=== PATIENT | female | born 1955 | race Hispanic/Latino ===

== ENCOUNTER 2017-07-12 02:29 | Inpatient (IN) | payer SELFPAY ==
[2017-07-12] MEDS ORDERED: Magnesium Sulfate 2 GM/NS 0.9% 50 ML BAG ONE (03:22)
[2017-07-12 04:39] LABS: CKMB 0.7 ng/mL (0-6.6); Troponin I Less than 0.010 ng/mL (< 0.028)
[2017-07-12 07:33] LABS: Troponin I Less than 0.010 ng/mL (< 0.028)
[2017-07-12 08:08] LABS: Lactic Acid 4.3 mmol/L (0.5-2.2)
[2017-07-12] MEDS ORDERED: Senokot 8.6 MG TAB PO PRN ×3 (09:08→22:08)
[2017-07-12] MEDS ORDERED: Acetaminophen 325 MG TAB PO PRN ×2 (09:08→22:08)
[2017-07-12] MEDS ORDERED: Mag-Al 1200 mg/1200 mg/30 ML UDCUP PO PRN (09:08)
[2017-07-12] MEDS ORDERED: Bisacodyl 5 MG TAB PO PRN ×3 (09:08→22:08)
[2017-07-12] MEDS ORDERED: Calcium Carbonate 500 MG ChewTAB PO PRN (09:08)
[2017-07-12] MEDS ORDERED: cloNIDine 0.1 MG TAB PO PRN ×2 (09:09→22:08)
[2017-07-12] MEDS ORDERED: hydrALAZINE 20 MG/ML VIAL SLOW IVP PRN ×2 (09:09→22:08)
[2017-07-12] MEDS ORDERED: Sodium Chloride 0.9% 1,000 ML IV SCH (09:30)
--- NOTE | 2017-07-12 10:15 | HP ---
DATE OF ADMISSION: 07/12/2017 PRIMARY CARE PHYSICIAN: Dr. Mingo Cronin. CHIEF COMPLAINT: Chest pain and shortness of breath. HISTORY OF PRESENT ILLNESS: Ms. Hernandez is a pleasant 62-year-old female with past medic al history of asthma, rheumatoid arthritis, and hypertension, who is on immunosuppression with methot rexate and prednisone, presented to the [facility] with the above-mentioned complaint. History is mainly obtained by the record review as the patient currently has BiPAP on and is not able to provide much of the history. is at bedside, who supplemented some of it. According to them, she started to have sudden onset of chest pain followed shortly by worsening short ness of breath and excessive wheezing. She has been having some URI-like symptoms for the last 24 ho urs. Upon presentation to [facility], she was hypoxic with O2 sat of 89% on room air. Her symptoms did not improve with nebulizers at home as well as prednisone at increased dose. She wa s given Solu-Medrol and multiple continuous nebs in [facility] and was stabilized. Her EKG showed some ST depression in lead 1 and aVL and V5-V6 as well as some inverted T leads. Chest x- ray did not show any effusion, edema, or infiltrate. Her D-dimer was elevated, but it was found to b e chronically elevated since last year. Influenza swab done at [facility] wa s positive for influenza A. Nevertheless, she was also given Tamiflu and was transferred to our faci lity at emergency room. At [facility], she was found to be having severe wheezing with severe shortness of b reath with respiratory distress, labored breathing, dyspneic, tripoding, and grunting. She was found to have fever as well. She was started on BiPAP and was given some more nebulizers and has been fee ling better now. She is now being admitted with a presumptive diagnosis of acute respiratory failure and rule out sepsis. Her lactic acid has been elevated at 3.8, which has jumped up to 4.3. PAST MEDICAL HISTORY: 1. Hypertension. 2. Rheumatoid arthritis, on chronic immunosuppressants. 3. Asthma. 4. Morbid obesity. 5. Fibromyalgia. 6. Carpal tunnel syndrome. 7. Peripheral neuropathy. 8. Dyslipidemia. 9. Gastroesophageal reflux disease. 10. Allergic rhinitis. PAST SURGICAL HISTORY: 1. Bilateral carpal tunnel surgery. 2. Bilateral tubal ligation. 3. Cholecystectomy. SOCIAL HISTORY: She has on and off smoke, but has recently quit. She smoked for a total of 5 years. No alcohol or drug abuse. She is and lives with her family. Independent with ADLs and IAD Ls. FAMILY HISTORY: Significant for myocardial infarction in her father and brother. Her mother had a s troke. One of her siblings has diabetes. ALLERGIES: No known medication allergies. MEDICATIONS: Incomplete list, but as listed in the emergency room record, she takes Lynn as needed, Lyrica daily, prednisone 5 mg daily, and methotrexate unknown dose. REVIEW OF SYSTEMS: The following complete review of systems was negative, unless otherwise mentioned in the HPI or below: Constitutional: Weight loss or gain, ability to conduct usual activities. Sk in: Rash, itching. Eyes: Double vision, pain. ENT/Mouth: Nose bleeding, neck stiffness, pain, te nderness. Cardiovascular: Palpitations, dyspnea on exertion, orthopnea. Respiratory: Shortness of breath, wheezing, cough, hemoptysis, fever or night sweats. Gastrointestinal: Poor appetite, abdom inal pain, heartburn, nausea, vomiting, constipation, or diarrhea. Genitourinary: Urgency, frequenc y, dysuria, nocturia. Musculoskeletal: Pain, swelling. Neurologic/Psychiatric: Anxiety, depressio n. Allergy/Immunologic: Skin rash, bleeding tendency. It is negative except for those mentioned in the history and physical. LABORATORY EXAMINATION: CBC shows WBCs at 14.2 with 5% bands and 83% neutrophils, otherwise unremark able. Hemoglobin is 13.7. D-dimer is 1.79. Serum chemistries show blood sugar of 164, bicarbonate 20, otherwise unremarkable. Chest x-ray, by my review, has no evidence to suggest pulmonary infiltra kenton or edema. A 12-lead EKG, by my review, shows inverted T leads in leads V4, V5, V1, and aVL with ST depression i n the same leads. PHYSICAL EXAMINATION: VITAL SIGNS: Most recent vital signs, temperature 98.7, blood pressure 125/75, respirations 20, she is saturating 96% on BiPAP, pulse of 91. GENERAL EXAMINATION: In no acute distress. She is somewhat somnolent, arousable, and able to provid e answers to the questions in general. No acute respiratory distress noticed. Awake, alert, oriente d x3. HEENT EXAMINATION: BiPAP mask is on. Head is normocephalic, atraumatic. Pupils equal and reactive to light and accommodation. Extraocular movements intact. NECK: Supple without any lymphadenopathy, JVD, or bruit. CHEST: Evaluation shows bilateral wheezing without any crackles or rhonchi. HEART: Rate and rhythm is regular without any murmur, rubs, or gallops. ABDOMEN: Morbidly obese. EXTREMITIES: Free of any cyanosis, clubbing, or edema. SKIN: Free of any rashes or bruises. Feels warm and dry to touch. PSYCHIATRIC: Normal affect. NEUROLOGICAL EXAMINATION: Nonfocal. IMPRESSION AND PLAN: 1. Acute respiratory distress. This is likely secondary to acute asthma exacerbation due to influen za A. Sepsis also needs to be ruled out. She will be empirically started on IV antibiotics as well as Tamiflu. We will continue IV steroids and BiPAP as needed and supplemental oxygen. Nebulizers sc heduled and p.r.n. will be ordered along with Dulrea. She will be admitted to intermediate care unit and we will consult Pulmonary Medicine as well. Incentive pulmonary toilet will be initiated. Drop let precautions. 2. Lactic acidosis. Sepsis needs to be ruled out. Blood cultures have been obtained and we will fo llow the results. We will provide her with gentle IV fluid hydration for the sepsis and follow the r esults of the cultures. Empiric antibiotic as above along with the Tamiflu. 3. Chest pain. The patient had a normal stress test late last year with good ejection fraction of 6 9%. Likely, her chest pain is related to asthma exacerbation and bronchospasm. We will add p.r.n. n itroglycerin and low-dose aspirin and continue to trend serial cardiac enzymes. Her troponins have b een negative so far x2. 3. Rheumatoid arthritis. Resume her home medication of methotrexate. She will be on IV steroids, s o we will hold the oral prednisone for now. 4. Asthma. Continue with inhalers and nebulizers as above. 5. Hypertension, currently well controlled. Reconcile her medications and restart as needed. 6. Deep venous thrombosis and gastrointestinal prophylaxis. 7. Add p.r.n. medication orders. 8. Code status: FULL CODE, discussed with the patient. DISPOSITION: Ms. Hernandez is critically ill and will be admitted to IM for acute respiratory dist ress due to asthma exacerbation and influenza A. Total critical care time spent in the care of this patient is 38 minutes. Further management will de pend upon her clinical course.
[2017-07-12 10:43] LABS: Troponin I Less than 0.010 ng/mL (< 0.028)
[2017-07-12] MEDS ORDERED: Levofloxacin 500 mg/D5W 100 ml Premix Bag ONE (11:05)
[2017-07-12] MEDS ORDERED: Water For Inject, Bacteriostat 30 ML ONE (12:38)
[2017-07-12] MEDS: Mometasone/Formoterol 120 PUFF INHALER INH SCH (19:47)
[2017-07-12] MEDS ORDERED: Famotidine 20 MG TAB ONE (21:18)
[2017-07-12] MEDS ORDERED: Diabetic Tussin 200 MG/10 ML UDCUP PO PRN (22:08)
[2017-07-12] MEDS ORDERED: Benzonatate 100 MG CAP PO PRN (22:08)
[2017-07-12] MEDS ORDERED: Famotidine 20 MG TAB PO SCH (22:08)
[2017-07-12] MEDS ORDERED: Loratadine 10 MG TAB PO PRN (22:08)
[2017-07-12] MEDS ORDERED: Nitroglycerin 0.4 MG TAB (25 Tab Bottle) SL PRN (22:08)
[2017-07-12] MEDS ORDERED: Ondansetron HCl/PF 4 MG/2 ML Vial IVP PRN ×2 (22:08)
[2017-07-12] MEDS: Oseltamivir 75 MG CAP PO SCH (22:14)
[2017-07-12] MEDS: Famotidine 20 MG TAB PO SCH (22:15)
[2017-07-12 22:21] VITALS: BMI 41.7
[2017-07-12] MEDS ORDERED: Enoxaparin Sodium 40 MG/0.4 ML SYRINGE SC SCH (22:30)
[2017-07-12] MEDS: Enoxaparin Sodium 40 MG/0.4 ML SYRINGE SC SCH (23:21)
[2017-07-12] MEDS: Sodium Chloride 0.9% 1,000 ML IV SCH (23:47)
[2017-07-13] MEDS: HYDROcodone/Acetaminophen 5/325 mg Tablet PO PRN ×2 (03:37→15:16)
[2017-07-13 04:57] LABS: #Lymphocytes 1.1 thou/uL (1.20-3.40); #Monocytes 0.5 thou/uL (0.11-0.59); %Basophils 0.1 % (0.0-1.0); %Eosinophils 0.1 % (0.0-10.0); %Lymphocytes 6.9 % (21.0-51.0); %Monocytes 3.4 % (0.0-10.0); %Neutrophils 89.5 % (42.0-75.0); Mean Corpuscular HGB CONC 32.2 g/dL (32.0-36.0); Mean Corpuscular Hemoglobin 30.9 pg (27.0-31.0); Mean Corpuscular Volume 95.8 fl (81.0-99.0); Mean Platelet Volume 8.7 fL (7.4-10.4); Platelet Count 228 thou/uL (130-400); RBC Distribution Width 14.5 % (11.5-14.5); Red Blood Cell (RBC) Count 4.54 mill/uL (4.20-5.40); White Blood Cell (WBC) Count 15.6 thou/uL (4.8-10.8)
[2017-07-13] MEDS: Sodium Chloride 0.9% 1,000 ML IV SCH (05:28)
[2017-07-13 05:35] LABS: ALT (SGPT) 32 U/L (8-55); AST (SGOT) 33 U/L (5-34); Albumin 3.7 g/dL (3.4-4.8); Alkaline Phosphatase 111 U/L (40-150); Anion Gap 16 mmol/L (10-20); BUN (Urea Nitrogen) 9 mg/dL (9.8-20.1); Bilirubin, Total 0.3 mg/dL (0.2-1.2); Calc. Creatinine Clearance 136 mL/min (70-130); Calcium 8.7 mg/dL (7.8-10.44); Carbon Dioxide 20 mmol/L (23-31); Chloride 108 mmol/L (98-107); Estimated GFR-MDRD 90; Globulin 3.2 g/dL (2.4-3.5); Glucose 167 mg/dL (80-115); Potassium 4.2 mmol/L (3.5-5.1); Protein, Total 6.9 g/dL (6.0-8.3); Sodium 140 mmol/L (136-145)
[2017-07-13] MEDS: Enoxaparin Sodium 40 MG/0.4 ML SYRINGE SC SCH ×2 (08:05→08:07)
[2017-07-13] MEDS: Famotidine 20 MG TAB PO SCH ×2 (08:06→20:07)
[2017-07-13] MEDS: Oseltamivir 75 MG CAP PO SCH ×2 (08:07→20:07)
[2017-07-13] MEDS: traMADol HCl 50 MG TAB PO PRN ×2 (08:07→18:05)
[2017-07-13] MEDS: Mometasone/Formoterol 120 PUFF INHALER INH SCH ×2 (08:48→18:55)
[2017-07-13] MEDS ORDERED: Sodium Chloride 0.9% 1,000 ML IV SCH (08:59)
--- NOTE | 2017-07-13 11:48 | CON ---
DATE OF CONSULTATION: 07/13/2017 A 62-year-old morbidly obese female who presented with shortness of breath, cough. She has influenza A. She was started on Tamiflu. She also states that she has a history of asthma, a former smoker. Calos ugalde has not sought any recent medical attention because of financial issues. The patient's coughing was grossly purulent. She denies any chills or sweats, though she is complain ing of vague posterior chest pain, but no history of anterior chest pain, nausea, vomiting, diaphores is. She is pretty much deconditioned, she says because of arthritis. PAST MEDICAL HISTORY: Chronic asthma, COPD, tobacco abuse, hypertension, fibromyalgia, rheumatoid ar thritis, carpal tunnel, neuropathy. PAST SURGICAL HISTORY: Otherwise included carpal tunnel surgery, tubal ligation, gallbladder. MEDICATIONS: List of medicines from home includes prednisone, Atarax, Lyrica 150, Protonix 40, metho trexate 3 tablets once a week, Mobic 7.5, hydrocodone, Advair inhaler, Nexium, Flexeril, albuterol in haler. Admission medications; she is on Tamiflu, Levaquin. X-ray was normal. REVIEW OF SYSTEMS: Ten point negative. PHYSICAL EXAMINATION: GENERAL: Morbidly obese female. VITAL SIGNS: Blood pressure is 156/96, sats 93 on 2 liters, respirations 20, temperature 98. CHEST: Chest revealed decreased breath sounds, no wheezing. CARDIAC: Normal S1-S2. No gallops. ABDOMEN: Soft. No masses. Electrolytes are normal. White count 15,000. IMPRESSION: 1. Influenza A. 2. Bronchitis. 3. Chronic obstructive pulmonary disease. 4. Asthma. 5. . 6. Fibromyalgia. PLAN: Continue antibiotics, deescalate since all cultures are back. Continue Tamiflu, PT, nutrition. Please note this is a 50 minute spent for consultation at the bedside, direct patient care.
--- NOTE | 2017-07-13 14:28 | PDOC.PN ---
- Subjective Encounter Start Date: 07/13/17 Encounter Start Time: 14:27 Subjective: feels a bit better.stilll easily winded. -: c/o back pain - Objective MAR Reviewed: Yes Vital Signs & Weight: Vital Signs (12 hours) Temp Pulse Resp BP BP Pulse Ox 07/13/17 14:24 96 24 H 07/13/17 12:00 88 L 07/13/17 11:40 97.8 F 89 17 145/73 H 90 L 07/13/17 08:48 83 24 H 93 L 07/13/17 08:25 92 L 07/13/17 08:21 83 24 H 92 L 07/13/17 08:01 97.8 F 91 22 H 156/69 H 91 L 07/13/17 08:00 97.8 F 83 24 H 91 L 07/13/17 04:00 97.3 F L 95 22 H 171/94 H 92 L Weight Weight 220 lb 14.4 oz I&O: 07/12/17 07/13/17 07/14/17 06:59 06:59 06:59 Intake Total 1060 Output Total 300 Balance 760 Result Diagrams: 07/13/17 04:06 07/13/17 04:06 Additional Labs: Microbiology 07/12/17 00:07 Nasal swab Influenza Types A,B Direct EIA - Final 07/13/17 03:28 Urine voided Urine Culture - Preliminary NO GROWTH AT 24 HOURS Laboratory Tests 07/11/17 07/13/17 00:15 04:06 WBC 14.2 H 15.6 H Phys Exam - Physical Examination Constitutional: NAD not wearing oxygen.put back on by me HEENT: PERRLA, moist MMs, sclera anicteric, oral pharynx no lesions Neck: no nodes, no JVD, supple, full ROM Respiratory: wheezing present rhonchi Cardiovascular: RRR, no significant murmur Gastrointestinal: soft, non-tender, no distention, positive bowel sounds Musculoskeletal: no edema, pulses present Neurological: non-focal, normal sensation, moves all 4 limbs Psychiatric: normal affect, A&O x 3 Skin: no rash Dx/Plan (1) Acute respiratory failure Code(s): J96.00 - ACUTE RESPIRATORY FAILURE, UNSP W HYPOXIA OR HYPERCAPNIA Status: Acute Qualifiers: Respiratory failure complication: hypoxia Qualified Code(s): J96.01 - Acute respiratory failure with hypoxia (2) Acute bronchitis with chronic obstructive pulmonary disease (COPD) Code(s): J44.0 - CHRONIC OBSTRUCTIVE PULMON DISEASE W ACUTE LOWER RESP INFCT; J20.9 - ACUTE BRONCHITIS, UNSPECIFIED Status: Acute (3) Influenza A Code(s): J10.1 - FLU DUE TO OTH IDENT INFLUENZA VIRUS W OTH RESP MANIFEST Status: Acute (4) Chronic pain Code(s): G89.29 - OTHER CHRONIC PAIN Status: Acute (5) Morbid obesity Code(s): E66.01 - MORBID (SEVERE) OBESITY DUE TO EXCESS CALORIES Status: Acute (6) Rheumatoid arthritis Code(s): M06.9 - RHEUMATOID ARTHRITIS, UNSPECIFIED Status: Acute - Plan continue antibiotics, respiratory therapy, incentive spirometry, out of bed/ ambulate, DVT proph w/SCDs Change to PO ABx.cont IV steroids,nebs,dulera etc -: Cont tamiflu. -: likley home in next 24-48 hours. -: PCCM following.Restart Home meds including lasix.DC IVF -: am labs * . Review of Systems - Review of Systems Constitutional: weakness, malaise. negative: fever, chills, sweats, other Respiratory: Cough, SOB with Excertion. negative: Dry, Shortness of Breath, Hemoptysis, Pleuritic Pain, Sputum, Wheezing Cardiovascular: negative: chest pain, palpitations, orthopnea, paroxysmal nocturnal dyspnea, edema, light headedness, other Gastrointestinal: negative: Nausea, Vomiting, Abdominal Pain, Diarrhea, Constipation, Melena, Hematochezia, Other Genitourinary: negative: Dysuria, Frequency, Incontinence, Hematuria, Retention , Other Musculoskeletal: negative: Neck Pain, Shoulder Pain, Arm Pain, Back Pain, Hand Pain, Leg Pain, Foot Pain, Other Neurological: negative: Weakness, Numbness, Incoordination, Change in Speech, Confusion, Seizures, Other - Medications/Allergies Allergies/Adverse Reactions: Allergies Allergy/AdvReac Type Severity Reaction Status Date / Time No Known Drug Allergies Allergy Verified 07/12/17 22:12 Medications: Current Medications Acetaminophen (Tylenol) 650 mg PO Q4H PRN PRN Reason: Headache/Fever or Pain Hydrocodone Bitart/Acetaminophen (Norton 5/325) 1 tab PO Q4H PRN PRN Reason: Moderate Pain (4-6) Last Admin: 07/13/17 03:37 Dose: 1 tab Hydrocodone Bitart/Acetaminophen (Norton 10/325) tab PO Q4HR PRN PRN Reason: Pain Al Hydroxide/Mg Hydroxide (Maalox) 30 ml PO Q6H PRN PRN Reason: Heartburn or Indigestion Albuterol/Ipratropium (Duoneb) 3 ml NEB Q4H PRN PRN Reason: SOB &/or Wheezing Albuterol/Ipratropium (Duoneb) 3 ml NEB [id number] [facility] Last Admin: 07/13/17 14:24 Dose: 3 ml Benzonatate (Tessalon) 100 mg PO Q4H PRN PRN Reason: Cough Bisacodyl (Dulcolax) 10 mg PO DAILYPRN PRN PRN Reason: Constipation Calcium Carbonate (Tums) 1,000 mg PO Q4H PRN PRN Reason: Heartburn or Indigestion Clonidine (Catapres) 0.1 mg PO Q4H PRN PRN Reason: Systolic BP > 160 Cyclobenzaprine HCl (Flexeril) 10 mg PO BID [facility] Enoxaparin Sodium (Lovenox) 40 mg SC 0900 [facility] Last Admin: 07/13/17 08:05 Dose: 40 mg Enoxaparin Sodium (Lovenox) 40 mg SC 0900 [facility] Last Admin: 07/13/17 08:07 Dose: 40 mg Famotidine (Pepcid) 20 mg PO BID [facility] Last Admin: 07/13/17 08:06 Dose: 20 mg Furosemide (Lasix) mg PO DAILY [facility] Guaifenesin (Robitussin Sf) 200 mg PO Q4H PRN PRN Reason: Cough Hydralazine HCl (Apresoline) 10 mg SLOW IVP Q4H PRN PRN Reason: Systolic BP > 170 Sodium Chloride (Normal Saline 0.9%) 1,000 mls @ 75 mls/hr IV .[id number] [facility] Last Admin: 07/13/17 10:21 Dose: 1,000 mls Levofloxacin (Levaquin) 500 mg PO 0600 [facility] Loratadine (Claritin) 10 mg PO DAILYPRN PRN PRN Reason: Sinus Symptoms Methotrexate Sodium (Methotrexate Sodium) mg PO Q7D [facility] Methylprednisolone Sodium Succinate (Solu-Medrol) 40 mg IVP Q6HR [facility] Last Admin: 07/13/17 12:27 Dose: 40 mg Mometasone Furoate/Formoterol Fumar (Dulera 200 Mcg/5 Mcg Inhaler) 2 puff INH BID-RT [facility] Last Admin: 07/13/17 08:48 Dose: 2 puff Nitroglycerin (Nitrostat) 0.4 mg SL Q5MIN PRN PRN Reason: Chest Pain Non-Formulary Medication (Esomeprazole Magnesium [Nexium]) 40 mg PO DAILY [facility] Non-Formulary Medication (Folic Acid [Folic Acid]) 1 mg PO DAILY [facility] Non-Formulary Medication (Pregabalin [Lyrica]) 150 mg PO BID [facility] Ondansetron HCl (Zofran) 4 mg IVP Q6H PRN PRN Reason: Nausea/Vomiting Last Admin: 07/13/17 08:10 Dose: 4 mg Oseltamivir Phosphate (Tamiflu) 75 mg PO BID [facility] Stop: 07/16/17 21:01 Last Admin: 07/13/17 08:07 Dose: 75 mg Senna (Senokot) 2 tab PO HSPRN PRN PRN Reason: Constipation Tramadol HCl (Ultram) 50 mg PO Q4H PRN PRN Reason: Moderate Pain (4-6) Last Admin: 07/13/17 08:07 Dose: 50 mg
[2017-07-13] MEDS: Pregabalin 75 MG CAP PO SCH (20:06)
[2017-07-13] MEDS: HYDROcodone/Acetaminophen 10/325 mg Tablet PO PRN (20:07)
[2017-07-13] MEDS: Cyclobenzaprine 10 MG TAB PO SCH (20:07)
[2017-07-13] MEDS ORDERED: Albuterol Sulfate 1.25 MG/3 ML NEB ONE (23:51)
[2017-07-14 05:38] LABS: Anion Gap 17 mmol/L (10-20); BUN (Urea Nitrogen) 13 mg/dL (9.8-20.1); Calc. Creatinine Clearance 145 mL/min (70-130); Calcium 8.4 mg/dL (7.8-10.44); Carbon Dioxide 18 mmol/L (23-31); Chloride 107 mmol/L (98-107); Estimated GFR-MDRD Greater than 90; Glucose 179 mg/dL (80-115); Potassium 4.6 mmol/L (3.5-5.1); Sodium 137 mmol/L (136-145)
[2017-07-14] MEDS: HYDROcodone/Acetaminophen 10/325 mg Tablet PO PRN ×3 (05:50→21:21)
[2017-07-14] MEDS: Mometasone/Formoterol 120 PUFF INHALER INH SCH ×2 (07:35→20:50)
[2017-07-14] MEDS: Folic Acid 1 MG TAB PO SCH (09:14)
[2017-07-14] MEDS: Cyclobenzaprine 10 MG TAB PO SCH ×2 (09:14→21:20)
[2017-07-14] MEDS: Pregabalin 75 MG CAP PO SCH ×2 (09:14→21:20)
[2017-07-14] MEDS: Famotidine 20 MG TAB PO SCH ×2 (09:14→21:20)
[2017-07-14] MEDS: Enoxaparin Sodium 40 MG/0.4 ML SYRINGE SC SCH ×2 (09:14→09:44)
[2017-07-14] MEDS: Oseltamivir 75 MG CAP PO SCH ×2 (09:15→21:20)
[2017-07-14] MEDS: Furosemide 20 MG TAB PO SCH (09:15)
--- NOTE | 2017-07-14 10:26 | PRG ---
DATE OF SERVICE: 07/14/2017 This morning she is better, less short of breath, less fever, less headache. PHYSICAL EXAMINATION: VITAL SIGNS: Temperature 96. Sats are 98 on 2 liters, respirations 16, pulse 75, blood pressure 156 /74. CHEST: Chest reveals decreased breath sounds with minimal wheezing. CARDIAC: Normal S1-S2. No gallops. ABDOMEN: Soft. No masses. IMPRESSION: 1. Influenza A. 2. Bronchitis baseline. 3. Rheumatoid arthritis. PLAN: She can probably be switched over to oral medication. She can be transferred out of the [facility]. Continue Tamiflu. I will follow.
--- NOTE | 2017-07-14 15:55 | PDOC.PN ---
- Subjective Encounter Start Date: 07/14/17 Encounter Start Time: 15:45 Subjective: f/u for acute hypoxic resp failure due to Influenza A and asthmatic -: bronchitis. Currently feels better, SOB with ambulation or minimal -: exertion. No fever. - Objective MAR Reviewed: Yes Vital Signs & Weight: Vital Signs (12 hours) Temp Pulse Pulse Pulse Resp BP BP 07/14/17 15:04 89 16 07/14/17 12:01 97.6 F 83 18 07/14/17 09:09 96.5 F L 85 16 07/14/17 07:48 82 82 165/81 H 160/73 H 07/14/17 07:33 86 16 07/14/17 04:43 07/14/17 04:00 97.6 F 80 15 BP BP Pulse Ox Pulse Ox Pulse Ox 07/14/17 15:04 90 L 07/14/17 12:01 156/85 H 90 L 07/14/17 09:09 156/74 H 92 L 07/14/17 07:48 91 L 92 L 07/14/17 07:33 95 07/14/17 04:43 94 L 07/14/17 04:00 137/66 93 L Weight Weight 220 lb 14.4 oz I&O: 07/13/17 07/14/17 07/15/17 06:59 06:59 06:59 Intake Total 1060 1425 Output Total 300 Balance 760 1425 Result Diagrams: 07/13/17 04:06 07/14/17 04:11 Additional Labs: Microbiology 07/13/17 03:28 Urine voided Urine Culture - Final NO GROWTH AT 48 HOURS 07/12/17 22:25 Venous blood - Right Hand Blood Culture - Preliminary Specimen has been received and culture in progress. No Growth to date. 07/12/17 22:19 Venous blood - Left Hand Blood Culture - Preliminary Specimen has been received and culture in progress. No Growth to date. Laboratory Tests 07/14/17 04:11 B-Natriuretic Peptide 209.6 H EKG Reviewed by me: Yes (Tele - SR in 80's) Phys Exam - Physical Examination Constitutional: NAD alert, responsive HEENT: PERRLA, oral pharynx no lesions Neck: no JVD, supple diminished in bases, scattered exp wheezes Cardiovascular: RRR Gastrointestinal: soft, non-tender, no distention, positive bowel sounds Musculoskeletal: no edema, pulses present Neurological: normal sensation, moves all 4 limbs Psychiatric: A&O x 3 Skin: normal turgor, cap refill <2 seconds Dx/Plan (1) Acute respiratory failure Code(s): J96.00 - ACUTE RESPIRATORY FAILURE, UNSP W HYPOXIA OR HYPERCAPNIA Status: Acute Qualifiers: Respiratory failure complication: hypoxia Qualified Code(s): J96.01 - Acute respiratory failure with hypoxia Comment: Resolving, wean O2 as clinically indicated (2) Acute bronchitis with chronic obstructive pulmonary disease (COPD) Code(s): J44.0 - CHRONIC OBSTRUCTIVE PULMON DISEASE W ACUTE LOWER RESP INFCT; J20.9 - ACUTE BRONCHITIS, UNSPECIFIED Status: Acute Comment: Improving, continue Levaquin 500mg po daily, continue Solumedrol and Duonebs (3) Influenza A Code(s): J10.1 - FLU DUE TO OTH IDENT INFLUENZA VIRUS W OTH RESP MANIFEST Status: Acute Comment: Continue Tamiflu 75mg BID (4) Morbid obesity Code(s): E66.01 - MORBID (SEVERE) OBESITY DUE TO EXCESS CALORIES Status: Chronic (5) Rheumatoid arthritis Code(s): M06.9 - RHEUMATOID ARTHRITIS, UNSPECIFIED Status: Chronic - Plan plan discussed w/ family, continue antibiotics, respiratory therapy, out of bed/ ambulate, DVT proph w/SCDs Stable overall -: Continue Levaquin 500mg daily -: Continue Tamiflu 75mg BID -: Continue Solumedrol 40mg IV q6h -: Wean O2 as clinically tolerated * Likely home in 24h
[2017-07-14] MEDS: traMADol HCl 50 MG TAB PO PRN (23:37)
[2017-07-15] MEDS: HYDROcodone/Acetaminophen 10/325 mg Tablet PO PRN (05:54)
[2017-07-15] MEDS: Mometasone/Formoterol 120 PUFF INHALER INH SCH (06:59)
[2017-07-15] MEDS: traMADol HCl 50 MG TAB PO PRN (07:59)
[2017-07-15] MEDS ORDERED: Methotrexate Sodium 2.5 MG TAB PO SCH (09:00)
--- NOTE | 2017-07-15 09:33 | PRG ---
DATE OF SERVICE: 07/15/2017 This morning she is still short of breath, cough with yellow sputum. PHYSICAL EXAMINATION: VITAL SIGNS: Temperature 98, pulse 85, respirations 17, sats 92% on 2 liters, blood pressure 160/74. CHEST: Minimal wheezing, prolonged expiration. CARDIAC: Normal S1-S2. No gallops. ABDOMEN: Soft. No masses. IMPRESSION: 1. Chronic obstructive pulmonary disease exacerbation. 2. Influenza A. PLAN: I switched her to oral prednisone, continue antibiotics, neb treatments, supportive care. Hop efully, can discharge in the next several days.
[2017-07-15] MEDS: Cyclobenzaprine 10 MG TAB PO SCH (09:46)
[2017-07-15] MEDS: Famotidine 20 MG TAB PO SCH (09:47)
[2017-07-15] MEDS: Oseltamivir 75 MG CAP PO SCH (09:47)
[2017-07-15] MEDS: Folic Acid 1 MG TAB PO SCH (09:47)
[2017-07-15] MEDS: Furosemide 20 MG TAB PO SCH (09:47)
[2017-07-15] MEDS: Enoxaparin Sodium 40 MG/0.4 ML SYRINGE SC SCH (09:48)
[2017-07-15] MEDS: Pregabalin 75 MG CAP PO SCH (09:48)
--- NOTE | 2017-07-15 12:00 | DIS ---
DATE OF ADMISSION: 07/12/2017 DATE OF DISCHARGE: 07/15/2017 DISCHARGE DIAGNOSES: 1. Acute hypoxic respiratory failure, resolving. 2. Acute bronchitis with chronic obstructive pulmonary disease, improved. 3. Influenza A positive. 4. Chronic immunosuppression in the context of rheumatoid arthritis. 5. Morbid obesity. 6. Hypertension, stable. 7. Peripheral neuropathy. CONSULTATIONS: Dr. Son with Pulmonology Service. PERTINENT LABORATORY AND X-RAY FINDINGS: Basic metabolic profile within normal limits. Lactic acid level 4.3. LFTs within normal limits. Troponin I negative x3. BNP 210. CBC showed a white blood c ell count of 15.6, hemoglobin 14, hematocrit 44, platelet count 228. Blood cultures x2 dated 018 showed no growth to date. Urine culture dated 07/13/2017 showed no growth at 48 hours. Portable chest x-ray dated 07/11/2017 showed no acute cardiopulmonary process. HOSPITAL COURSE: The patient was initially admitted after complaints of shortness of breath and hypo sugey in the context of known asthma, on chronic methotrexate and prednisone for rheumatoid arthritis. The patient underwent general evaluation including chest imaging showing no acute infiltrate; howeve r, due to hypoxia and respiratory distress, the patient was initiated on trial of BiPAP noninvasive m echanical ventilation. The patient received bronchodilator therapy as well as IV Solu-Medrol and ladi asim on broad-spectrum IV antibiotic therapy. The patient was observed in the critical care unit, imp roving in less than 24 hours, transitioning to the telemetry unit for further observation. The patie nt was treated for acute bronchitis in the context of known asthma exacerbation and chronic obstructi ve pulmonary disease, transitioning to oral therapy including Levaquin and bronchodilator therapy wit h Wendy. Patient was influenza A positive and initiated on Tamiflu 75 mg b.i.d. Current recommendations are to complete a 5-day course of therapy on discharge. Overall, the patient did remain clinically stable and markedly improved regarding respiratory status by the time of disch arge. The patient ready for discharge 07/15/2017. DISCHARGE MEDICATIONS: 1. Albuterol sulfate 1.25 mg nebulized every 6 hours p.r.n. 2. Flexeril 10 mg 1 tab p.o. b.i.d. 3. Nexium 40 mg 1 tab p.o. daily. 4. Advair Diskus 2 inhalations b.i.d. 5. Folic acid 1 mg p.o. daily. 6. Lasix 20 mg 1 tab p.o. daily. 7. Arthur 10/325 mg 1 tab p.o. q.4-6 hours p.r.n. pain. 8. Hydroxyzine 50 mg p.o. b.i.d. p.r.n. 9. Levaquin 500 mg 1 tab p.o. daily x5 days. 10. Mobic 7.5 mg p.o. b.i.d. 11. Methotrexate 2.5 mg 3 tabs p.o. every 7 days. 12. Tamiflu 75 mg 1 tab p.o. b.i.d. x2 days. 13. Prednisone 20 mg 1 tab p.o. b.i.d. x3 days, followed by 1 tab p.o. daily x3 days, followed by rice lf a tab p.o. daily x3 days. 14. Prednisone 4 mg 1 tab p.o. daily, may resume after completion of Prednisone taper. 15. Lyrica 150 mg 1 tab p.o. b.i.d. FOLLOWUP: Patient may follow up with [facility] in [place], [place], after discharge within 7 days. CONDITION ON DISCHARGE: Stable. ACTIVITY: Ad nadine. DIET: Heart healthy. CODE STATUS: FULL. DISPOSITION: Home, 07/15/2017. Total time in preparing and coordinating discharge 35 minutes.
[2017-07-15 17:14] VITALS: BP 172/98; TEMP 98
[2017-07-16] MEDS ORDERED: predniSONE 20 MG TAB PO SCH (08:00)
--- NOTE | 2017-08-15 21:57 | EKG ---
Test Reason : Blood Pressure : / mmHG Vent. Rate : 095 BPM Atrial Rate : 095 BPM P-R Int : 166 ms QRS Dur : 082 ms QT Int : 402 ms P-R-T Axes : 063 003 125 degrees QTc Int : 505 ms Normal sinus rhythm T wave abnormality, consider lateral ischemia Prolonged QT Inverted T V4-V6, I, aVL Abnormal ECG Confirmed by SHAHBAZ Perry, NORM ([id number]), news editor TEODORO BOND ([id number]) on 08/15/2017 9:57:41 PM Referred By: Confirmed By:NORM HARTMANN M.D.
== END 2017-07-15 17:19 | disposition home or self-care (01) | DRG 193 ==
LOC: ERS 02:29 → ERHOLD 06:10 → 2NO 22:02
PROVIDERS: ADMIT Internal Medicine; ATTEND Internal Medicine
DX: J10.1 Influenza due to other identified influenza virus with other respiratory manifestations (principal); J96.01 Acute respiratory failure with hypoxia; J44.1 Chronic obstructive pulmonary disease with (acute) exacerbation; E87.2 Acidosis; J44.0 Chronic obstructive pulmonary disease with (acute) lower respiratory infection; Z68.41 Body mass index [BMI] 40.0-44.9, adult; G62.9 Polyneuropathy, unspecified; E66.01 Morbid (severe) obesity due to excess calories; I10 Essential (primary) hypertension; M06.9 Rheumatoid arthritis, unspecified; J20.9 Acute bronchitis, unspecified; E78.5 Hyperlipidemia, unspecified; K21.9 Gastro-esophageal reflux disease without esophagitis; M79.7 Fibromyalgia; R07.9 Chest pain, unspecified; Z87.891 Personal history of nicotine dependence; Z82.49 Family history of ischemic heart disease and other diseases of the circulatory system; Z83.3 Family history of diabetes mellitus
CPT/HCPCS: 36415; 80048; 80053; 82553; 83605; 83880; 84484; 85025; 87086; 93005; 94640; 94660; 94664; 94760; 96361; 96365; 96367; 96375; 96376; G8978-GP-CJ; G8979-GP-CJ; G8980-GP-CJ; G8987-GO-CI; G8988-GO-CI; G8989-GO-CI; J1650; J1956; J2405; J2920; J3475; J7620; J8610

== ENCOUNTER 2018-09-28 20:06 | Observation (INO) | payer MEDICARE, OTHER ==
[2018-09-28] MEDS ORDERED: Acetaminophen 325 MG TAB PO PRN (22:29)
[2018-09-28] MEDS ORDERED: Ondansetron PF 4 MG/2 ML Vial IVP PRN (22:29)
[2018-09-28] MEDS ORDERED: Ondansetron ODT 4 MG TAB PO PRN (22:29)
[2018-09-28 23:19] VITALS: BMI 37.4
--- NOTE | 2018-09-28 23:38 | HP ---
PRIMARY CARE PROVIDER: Dr. Mingo Cronin. CODE STATUS FOR THIS PATIENT: Full code. TIME OF EVALUATION: 10:00 p.m. CHIEF COMPLAINT: Chest pain. HISTORY OF PRESENT ILLNESS: This is a 63-year-old female patient with past medical history of anxiety, rheumatoid arthritis, asthma, osteoarthritis, and fibromyalgia, came to the hospital after having episodes of palpitations, associated with chest pain with no clear triggers, no alleviating factors associated with shakings, this seems to have been on and off, 12/13, it starts suddenly, and improved by itself. REVIEW OF SYSTEMS: CONSTITUTIONAL: No fever. The patient has chills, no generalized weakness. RESPIRATORY: No cough, sputum production, or shortness of breath. CARDIOVASCULAR: The patient has no chest pain or palpitation. GASTROINTESTINAL: No nausea, no vomiting, diarrhea, or abdominal pain. 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 GENITOURINARY: No burning on urination. EXTREMITIES: No leg swelling. All other systems were reviewed and negative except for the findings mentioned above. PAST MEDICAL HISTORY: Positive for the findings mentioned in the HPI. PAST SURGICAL HISTORY: Positive for cholecystectomy, tubal ligation; carpal tunnel surgery, bilateral. PSYCHIATRIC HISTORY: No previous psych history. FAMILY HISTORY: father : heart problems SOCIAL HISTORY: No alcohol. No drugs. Former tobacco user, smokes cigarettes and has quit smoking more than 10 years ago. ALLERGIES: NO KNOWN DRUG ALLERGIES. REPORTED MEDICATIONS: 1. K-Tab. 2. Meloxicam. 3. Proventil. 4. Nexium. 5. Pantoprazole. 6. Tylenol with codeine 3. 7. [place]. 8. Lasix. 9. Methotrexate. 10. Prednisone. 11. Tramadol. 12. Hydroxyzine. PHYSICAL EXAMINATION: VITAL SIGNS: Vital signs on presentation; blood pressure 117/74 with heart rate 93, respiratory rate was 18, temperature 98.5, pain 5/10, and oxygen saturation 96% on room air. GENERAL APPEARANCE: The patient is alert, oriented, not in acute distress. HEENT: Eyes, normal conjunctivae. Moist oral mucosa. Anicteric. No JVD. RESPIRATORY: Bilateral air entry. No rales. No wheezes. Symmetric expansion. CARDIOVASCULAR: Normal rate and regular rhythm. No murmurs. No gallop. No edema. The patient have occasional skipped beats. ABDOMEN: Soft. Normal bowel sounds. The patient is obese. MUSCULOSKELETAL: Baseline range of motion and strength. No tenderness. SKIN: Warm, intact. No pallor. No rash. No redness. Peripheral pulses are present. Capillary refill seems to be intact. NEUROLOGIC: No evidence of any new focal weakness. Baseline speech. Cranial nerves seems to be intact. PSYCHIATRIC: The patient is in good mood. No anxiety. Optimal judgment. IMAGING STUDIES: EKG was reviewed. The patient has normal sinus rhythm with a rate of 93, ND 190, QRS 72, QT corrected 494, prolonged QT. LABORATORY DATA: Labs were reviewed. Troponins were negative. Other labs were not recorded yet. Chest x-ray was reviewed. The patient has no acute thoracic findings. Last stress test was done in 2016 in December that was negative. ASSESSMENT AND PLAN: The patient will be placed in the hospital with following medical problems: 1. Chest pain, rule out acute coronary syndrome: The patient has reported some palpitations. She was monitored on tele. We will do stress test in the morning , the patient has risk factors for coronary artery disease. The patient is obese. The patient has father who of coronary artery disease. 2. History of rheumatoid arthritis. We will reconcile home medications. We will treat accordingly. 3. Fibromyalgia. We will reconcile home medications. Adjust treatment as needed. 4. History of asthma. This is chronic, is controlled. Reconcile home medications. Treat p.r.n. 5. Deep venous thrombosis prophylaxis. Job ID: [id number] MTDD
[2018-09-29 00:55] LABS: Troponin I Less than 0.010 ng/mL (< 0.028)
[2018-09-29] MEDS ORDERED: Lorazepam 2 MG/ML VIAL SLOW IVP PRN (00:56)
[2018-09-29 05:53] LABS: #Basophils 0.1 thou/uL (0.0-0.2); #Eosinphils 0.4 thou/uL (0.0-0.7); #Lymphocytes 3.2 thou/uL (1.20-3.40); #Monocytes 1.1 thou/uL (0.11-0.59); #Neutrophils 12.7 thou/uL (1.40-6.50); %Basophils 0.5 % (0.0-1.0); %Eosinophils 2.1 % (0.0-10.0); %Lymphocytes 18.5 % (21.0-51.0); %Neutrophils 72.9 % (42.0-75.0); Hemoglobin 9.6 g/dL (12.0-16.0); Mean Corpuscular Hemoglobin 24.5 pg (27.0-31.0); Mean Corpuscular Volume 78.9 fL (78.0-98.0); Mean Platelet Volume 8.1 fL (7.4-10.4); Platelet Count 491 thou/uL (130-400); Red Blood Cell (RBC) Count 3.91 mill/uL (4.20-5.40); White Blood Cell (WBC) Count 17.4 thou/uL (4.8-10.8)
[2018-09-29 06:13] LABS: Anion Gap 13 mmol/L (10-20); BUN (Urea Nitrogen) 10 mg/dL (9.8-20.1); Calc. Creatinine Clearance 114 mL/min (70-130); Calcium 8.9 mg/dL (7.8-10.44); Carbon Dioxide 25 mmol/L (23-31); Chloride 106 mmol/L (98-107); Estimated GFR-MDRD 84; Glucose 109 mg/dL (80-115); Potassium 4.5 mmol/L (3.5-5.1); Sodium 139 mmol/L (136-145)
[2018-09-29] MEDS ORDERED: Enoxaparin Sodium 40 MG/0.4 ML SYRINGE SC SCH (09:00)
--- NOTE | 2018-09-29 11:20 | NM ---
[facility] medicine cardiac SPECT: 09/29/2018 HISTORY: 63-year-old female presents with chest pain. TECHNIQUE: Stress only study. Pharmaceutical stress: Lexiscan IV injection of 33.0 mCi of technetium [id number]-sestamibi. FINDINGS: Stress myocardial perfusion SPECT: No significant left ventricular myocardial perfusion defect is identified to indicate infarction or i schemia. Ejection fraction study: Left ventricular ejection fraction is 79% Wall motion seen: Normal IMPRESSION: Negative
[2018-09-29] MEDS ORDERED: Regadenoson 0.4 MG/5 ML SYRINGE ONE (15:43)
[2018-09-29 16:01] VITALS: BP 149/70; TEMP 97.6
--- NOTE | 2018-09-29 21:40 | DIS ---
DATE OF ADMISSION: 09/28/2018 DATE OF DISCHARGE: 09/29/2018 PRIMARY CARE PHYSICIAN: Mingo Cronin MD ALLERGIES: NO KNOWN DRUG ALLERGIES. CHIEF COMPLAINT: Chest pain. FINAL DIAGNOSES: 1. Chest pain, resolved, acute coronary syndrome ruled out, MPI negative for ischemia. 2. Iron deficiency anemia, hemoglobin 9.6 this visit; 2018, was noted to be 12 to 14. 3. Leukocytosis, chronic, likely secondary to steroids. 4. Rheumatoid arthritis. 5. Chronic obstructive pulmonary disease. LABORATORY RESULTS: White blood cell count 17.4, hemoglobin 9.6, and hematocrit 30.8. Sodium 139, potassium 4.5, chloride 106, carbon dioxide 25, anion gap 13, BUN 10, creatinine 0.7, and GFR 84. Troponin negative x2. Vitamin B12 of 449, folate 15, and iron low at 30. IMAGING RESULTS: Stress myocardial perfusion SPECT using Lexiscan showed no significant left ventricular myocardial perfusion defect, and normal left ventricular ejection fraction of 79% along with normal wall motion. CONSULTATIONS: None. HOSPITAL COURSE: The patient is a pleasant 63-year-old female with past medical history significant for COPD, rheumatoid arthritis, anxiety, and fibromyalgia, who presented to the ER after experiencing an episode of chest pain when she was at home. The patient states that she was resting comfortable in bed when she began experiencing chest pressure associated with palpitations. She also had a sensation that she was tremoring. The symptoms seemed to come and go with no alleviating or aggravating factors, so she presented to the ER for further workup and treatment. The patient's pain did relieve on its own. As mentioned, the patient's stress test was negative. Her serial enzymes were negative as well. The patient has been resting comfortably and feels well. She has ambulated without issue. PHYSICAL EXAMINATION: VITAL SIGNS: Blood pressure 129/69, pulse is 79, and O2 saturation is 96% on room air. GENERAL: The patient is moderately obese. She is awake and alert and comfortable. No respiratory distress. HEENT: Atraumatic and normocephalic. Eye movement intact. NECK: Supple. No lymphadenopathy. No carotid bruits. RESPIRATORY: Regular respiratory rate and pattern. Clear to auscultation bilaterally. No rhonchi or wheezes. CV: S1 and S2. Regular rate and rhythm. No appreciable murmurs, rubs, or gallops. GI: Soft and nontender. Normal bowel sounds. PERIPHERAL VASCULAR: No lower extremity pitting edema. She has palpable pulses bilaterally. MUSCULOSKELETAL: No joint effusion or swelling. NEUROLOGIC: Awake and alert. Cranial nerves 2 through 12 grossly intact. Nonfocal. SKIN: Normal and dry. No rashes. CONDITION AT DISCHARGE: Stable. DISCHARGE MEDICATIONS: The patient will continue her home medication regimen including; 1. Albuterol inhaler p.r.n. 2. Ciprofloxacin ophthalmic 1 to 2 drops each eye t.i.d. 3. Cyclobenzaprine 10 mg tablet p.o. b.i.d. 4. Esomeprazole 20 mg tablet 40 mg daily. 5. Folic acid 1 mg tablet 1 tablet daily. 6. Furosemide 20 mg tablet 1 tablet daily. 7. Gabapentin 600 mg tablet 1 tablet p.o. b.i.d. 8. Hydrocodone 10/325 one tablet p.o. q.4 p.r.n. 9. Hydroxyzine 10 mg tablet 50 mg p.o. b.i.d. 10. Meloxicam 7.5 mg daily. 11. Methotrexate 2.5 mg tablet daily. 12. Methylprednisone 4 mg tablet 1 tablet p.o. daily. 13. Omeprazole 40 mg tablet 1 tablet p.o. at bedtime. 14. Pilocarpine 5 mg tablet 1 tablet p.o. t.i.d. 15. Varenicline 1 mg tablet 1 tablet p.o. b.i.d. New prescription will be ferrous sulfate 325 mg p.o. b.i.d. DISCHARGE DISPOSITION: Home. PLAN: The patient will continue to monitor her symptoms; however, her chest pain appears to be noncardiac in nature, possibly related to anxiety. The findings of all testing have been explained in detail. Regarding her anemia, I have started her on iron sulfate 325 b.i.d. She will follow up with her primary care doctor, Dr. Cronin, regarding further recommendations and workup regarding this anemia. Her hemoglobin was noted to be between 12 and 14 in 2018, and is now 9.6. The patient states that she has had no obvious bleeding; however, does have a history of hemorrhoids that bother her from time to time. The patient has never had colonoscopy. All questions of the patient and her family have been answered to their satisfaction. The patient will be discharged home. Care has been discussed with Dr. Gurrola, who agrees with the above. Job ID: [id number]
--- NOTE | 2018-10-02 21:12 | EKG ---
Test Reason : CHEST PAIN Blood Pressure : / mmHG Vent. Rate : 093 BPM Atrial Rate : 093 BPM P-R Int : 190 ms QRS Dur : 072 ms QT Int : 398 ms P-R-T Axes : 013 -01 107 degrees QTc Int : 494 ms Normal sinus rhythm Nonspecific ST and T wave abnormality Prolonged QT Abnormal ECG Confirmed by JUDAH CERON DO ([id number]), continuity editor TEODORO BOND ([id number] on 10/02/2018 9:11:33 PM Referred By: Confirmed By:JUDAH CERON DO
== END 2018-09-29 16:42 | disposition home or self-care (01) ==
LOC: ERS 20:06 → 2SW 22:43
PROVIDERS: ADMIT Hospitalist; ATTEND Hospitalist
DX: R07.9 Chest pain, unspecified (principal); F41.9 Anxiety disorder, unspecified; D50.9 Iron deficiency anemia, unspecified; D72.829 Elevated white blood cell count, unspecified; M06.9 Rheumatoid arthritis, unspecified; M19.90 Unspecified osteoarthritis, unspecified site; M79.7 Fibromyalgia; J44.9 Chronic obstructive pulmonary disease, unspecified; Z90.49 Acquired absence of other specified parts of digestive tract; Z98.51 Tubal ligation status; Z87.891 Personal history of nicotine dependence; Z79.2 Long term (current) use of antibiotics; Z79.52 Long term (current) use of systemic steroids; Z79.1 Long term (current) use of non-steroidal anti-inflammatories (NSAID); Z79.899 Other long term (current) drug therapy; Z98.890 Other specified postprocedural states
CPT/HCPCS: 78452; 80048; 82607; 82746; 83540; 84484 ×2; 85025; 93005; 93017; 96372; 96374; 99285; A9500; G0378 ×2; 36415; J1650; J2060; J2785

== ENCOUNTER 2018-10-14 09:11 | Outpatient (CLI) | payer MEDICARE, OTHER ==
--- NOTE | 2018-10-14 10:28 | BD ---
EXAM: DEXA bone density examination HISTORY: 63-year-old postmenopausal female for screening COMPARISON: None FINDINGS: L1--bone mineral density 0.830 g/sq cm; T score -1.5 L2--bone mineral density 0.950 g/sq cm; T score -0.7 L3--bone mineral density 1.048 g/sq cm; T score -0.3 L4--bone mineral density 0.927 g/sq cm; T score -1.2 Total L1-L4--bone mineral density 0.944 g/sq cm; T score -0.9 Left femoral neck--bone mineral density0.633; T score -1.9 Total proximal left femur--bone mineral density 1.016; T score 0.6 IMPRESSION: Osteopenia This patient has a 10 year WHO fracture risk of a major osteoporotic fracture of 13 and of a hip fracture of 1.1.
--- NOTE | 2018-10-14 10:30 | RAD ---
2 views of the left knee: 10/14/2018 COMPARISON: None HISTORY: Primary osteoarthritis of knee FINDINGS: There is severe medial compartment narrowing with associated subchondral sclerosis and oste ophyte formation. There is mild lateral compartment narrowing. There is a moderate degree of patellof emoral joint space narrowing with posterior patellar osteophyte formation. No knee joint effusion, di splaced fracture, or evidence of dislocation. IMPRESSION: Multicompartment degenerative change, most severely involving the medial compartment.
--- NOTE | 2018-10-14 10:34 | RAD ---
2 views right knee HISTORY: Osteoarthritis. AP and lateral views right knee obtained. Extensive bilateral medial and lateral compartment osteophytes seen. There is marked joint space narrowing in the medial compartment. There is a sclerotic [id number] ch anges of the medial compartment. Anterior compartment osteophytes also seen. IMPRESSION: Tricompartmental right knee osteoarthritis most severe in the medial compartment.
--- NOTE | 2018-10-14 10:47 | MMO ---
Bilateral MAMMO Bilat Screen [facility]. CLINICAL HISTORY: Patient is 63 years old and is seen for screening. The patient has no family history of breast cancer. The patient has no personal history of cancer. VIEWS: The views performed were: bilateral craniocaudal with tomosynthesis and bilateral mediolateral oblique with tomosynthesis. FILMS COMPARED: The present examination has been compared to a prior imaging study performed at [facility] on 09/04/2010. MAMMOGRAM FINDINGS: There are scattered fibroglandular densities. Finding 1: There are stable benign appearing calcifications seen in both breasts. Finding 2: There are stable intramammary lymph nodes seen in both breasts. There are no suspicious masses, suspicious calcifications, or new areas of architectural distortion. IMPRESSION: THERE IS NO MAMMOGRAPHIC EVIDENCE OF MALIGNANCY. A ROUTINE FOLLOW-UP MAMMOGRAM IN 1 YEAR IS RECOMMENDED. THE RESULTS OF THIS EXAM WERE SENT TO THE PATIENT. ACR BI-RADS Category 2 - Benign finding MAMMOGRAPHY NOTE: 1. A negative mammogram report should not delay a biopsy if a dominant of clinically suspicious mass is present. 2. Approximately 10% to 15% of breast cancers are not detected by mammography. 3. Adenosis and dense breasts may obscure an underlying neoplasm.
== END 2018-10-14 09:12 | disposition home or self-care (01) ==
LOC: BICMAMMO 09:11
PROVIDERS: ATTEND Internal Medicine Rheumatology
DX: Z12.31 Encounter for screening mammogram for malignant neoplasm of breast (principal); Z13.820 Encounter for screening for osteoporosis; M17.0 Bilateral primary osteoarthritis of knee; M85.89 Other specified disorders of bone density and structure, multiple sites
CPT/HCPCS: 77063; 77067; 77080

== ENCOUNTER 2019-07-13 11:12 | Outpatient (CLI) | payer MEDICARE, OTHER ==
--- NOTE | 2019-07-13 11:34 | RAD ---
Chest 2 views HISTORY: Dyspnea. COMPARISON: 04/09/2012. FINDINGS: Cardiac silhouette and pulmonary vasculature are unremarkable. Mediastinum is midline. No c onfluent airspace consolidation, pneumothorax, or pleural fluid. Metallic clips overlie the gallbladder fossa. IMPRESSION: No active cardiopulmonary abnormalities are demonstrated.
== END 2019-07-13 11:13 | disposition home or self-care (01) ==
LOC: RAD 11:12
PROVIDERS: ATTEND Internal Medicine Pulmonary Disease
DX: R06.00 Dyspnea, unspecified (principal)
CPT/HCPCS: 71046

== ENCOUNTER 2020-06-22 19:30 | Outpatient (CLI) | payer MEDICARE, OTHER | END 2020-06-22 19:31 | disposition home or self-care (01) | LOC: SLEEPLAB 19:30 | PROVIDERS: ATTEND Internal Medicine Pulmonary Disease | DX: G47.33 Obstructive sleep apnea (adult) (pediatric) (principal); J44.9 Chronic obstructive pulmonary disease, unspecified; R53.83 Other fatigue; E66.9 Obesity, unspecified; R06.83 Snoring; I51.89 Other ill-defined heart diseases; Z68.42 Body mass index [BMI] 45.0-49.9, adult | CPT/HCPCS: 95810 ==

== ENCOUNTER 2020-07-12 19:00 | Outpatient (CLI) | payer MEDICARE, OTHER | END 2020-07-12 19:01 | disposition home or self-care (01) | LOC: SLEEPLAB 19:00 | PROVIDERS: ATTEND Internal Medicine Pulmonary Disease | DX: G47.33 Obstructive sleep apnea (adult) (pediatric) (principal); R53.83 Other fatigue; R06.83 Snoring; I49.9 Cardiac arrhythmia, unspecified; E66.9 Obesity, unspecified; J44.9 Chronic obstructive pulmonary disease, unspecified; K21.9 Gastro-esophageal reflux disease without esophagitis; G47.61 Periodic limb movement disorder; G47.10 Hypersomnia, unspecified; Z68.42 Body mass index [BMI] 45.0-49.9, adult | CPT/HCPCS: 95811 ==

== ENCOUNTER 2021-08-09 02:43 | Inpatient (IN) | payer MEDICARE ==
[2021-08-09] MEDS ORDERED: Nitroglycerin 0.4 MG TAB (25 Tab Bottle) SL PRN (04:48)
[2021-08-09] MEDS ORDERED: Ondansetron PF 4 MG/2 ML Vial IVP PRN (04:48)
[2021-08-09] MEDS ORDERED: Acetaminophen 325 MG TAB PO PRN (04:48)
[2021-08-09] MEDS ORDERED: Acetaminophen 650 MG Suppository PR PRN (04:48)
[2021-08-09] MEDS ORDERED: Ondansetron ODT 4 MG TAB PO PRN (04:48)
[2021-08-09] MEDS ORDERED: HYDROcodone/Acetaminophen 10/325 mg Tablet PO PRN (05:09)
[2021-08-09] MEDS ORDERED: hydrOXYzine 10 MG TAB PO PRN (05:09)
[2021-08-09] MEDS ORDERED: Heparin 25,000 units/D5W 500 ML IVPB SCH (05:15)
[2021-08-09 05:20] VITALS: BMI 34.2
[2021-08-09 08:17] LABS: #Eosinphils 0.2 thou/uL (0.0-0.7); #Lymphocytes 3.2 thou/uL (1.20-3.40); #Monocytes 0.6 thou/uL (0.11-0.59); #Neutrophils 6.7 thou/uL (1.40-6.50); %Basophils 0.4 % (0.0-1.0); %Eosinophils 1.8 % (0.0-10.0); %Monocytes 5.6 % (0.0-10.0); %Neutrophils 62.3 % (42.0-75.0); Hemoglobin 7.1 g/dL (12.0-16.0); Mean Corpuscular HGB CONC 32.1 g/dL (32.0-36.0); Mean Corpuscular Hemoglobin 22.9 pg (27.0-31.0); Mean Corpuscular Volume 71.5 fL (78.0-98.0); Mean Platelet Volume 9.4 fL (7.4-10.4); Platelet Count 274 thou/uL (130-400); RBC Distribution Width 18.4 % (11.5-14.5); Red Blood Cell (RBC) Count 3.07 mill/uL (4.20-5.40); White Blood Cell (WBC) Count 10.8 thou/uL (4.8-10.8)
[2021-08-09 08:30] LABS: Anion Gap 12 mmol/L (10-20); BUN (Urea Nitrogen) 10 mg/dL (9.8-20.1); CRP (Inflammatory) 1.21 mg/dL (= or < 0.5); Calc. Creatinine Clearance 101 mL/min (70-130); Calcium 8.7 mg/dL (7.8-10.44); Carbon Dioxide 24 mmol/L (23-31); Chloride 105 mmol/L (98-107); Glucose 87 mg/dL (80-115); Potassium 4.2 mmol/L (3.5-5.1); Sodium 137 mmol/L (136-145)
[2021-08-09 08:37] LABS: Hypochromia SLIGHT = 6-15 cells (100X) (0-5/hpf); MDiff Complete? YES; Ovalocytes SLIGHT = 2-5 cells (100X) (0-1/hpf); Platelet Morphology Comment Appears Adequate; Polychromasia SLIGHT = 2-3 cells (100X) (0-2/hpf); Target Cells MODERATE= 6-15 cells (100X) (0-1/hpf)
[2021-08-09 08:41] LABS: Iron 15 ug/dL (50-170); Iron Binding Capacity, Total 441 mcg/dL (265-497)
[2021-08-09 08:50] LABS: Troponin I 0.563 ng/mL (< 0.028)
[2021-08-09] MEDS ORDERED: Pantoprazole 40 MG VIAL IVP SCH (09:00)
[2021-08-09] MEDS: Gabapentin 300 MG CAP PO SCH ×3 (09:07→21:50)
[2021-08-09] MEDS: DULoxetine 60 MG CAP PO SCH (09:07)
[2021-08-09] MEDS: Aspirin Chewable 81 MG TAB PO SCH (09:07)
[2021-08-09] MEDS: Varenicline Tartrate 0.5 MG TAB PO SCH ×2 (09:09→21:50)
[2021-08-09] MEDS ORDERED: Heparin 25,000 units/D5W 500 ML IV SCH (09:45)
[2021-08-09] MEDS ORDERED: Heparin 10,000 UNITS/ 10 ML VIAL SLOW IVP SCH (09:45)
[2021-08-09] MEDS: Albuterol 200 PUFF (6.7GM INHALER) INH SCH ×4 (10:23→21:51)
[2021-08-09] MEDS ORDERED: Iopamidol 370 76% 100 ML VIAL ONE (11:51)
[2021-08-09] MEDS ORDERED: predniSONE 20 MG TAB PO SCH (14:45)
[2021-08-09 14:55] LABS: Mean Corpuscular HGB CONC 31.5 g/dL (32.0-36.0); Mean Corpuscular Hemoglobin 22.3 pg (27.0-31.0); Mean Corpuscular Volume 70.7 fL (78.0-98.0); Mean Platelet Volume 9.5 fL (7.4-10.4); Platelet Count 263 thou/uL (130-400); RBC Distribution Width 18.3 % (11.5-14.5); Red Blood Cell (RBC) Count 3.14 mill/uL (4.20-5.40); White Blood Cell (WBC) Count 10.3 thou/uL (4.8-10.8)
[2021-08-09] MEDS ORDERED: Ferrous Sulfate 325 MG TAB PO SCH (15:00)
[2021-08-09] MEDS: Nitroglycerin 2% Ointment 1 INCH/1 GM Packet TOP SCH ×2 (15:21→21:51)
[2021-08-09 15:44] LABS: CKMB 1.4 ng/mL (0-6.6)
[2021-08-09] MEDS: Ferrous Sulfate 325 MG TAB PO SCH (17:47)
[2021-08-10] MEDS: Albuterol 200 PUFF (6.7GM INHALER) INH SCH ×6 (04:03→22:24)
[2021-08-10] MEDS: Nitroglycerin 2% Ointment 1 INCH/1 GM Packet TOP SCH ×4 (04:04→20:18)
[2021-08-10 04:54] LABS: #Lymphocytes 1.8 thou/uL (1.20-3.40); #Monocytes 0.9 thou/uL (0.11-0.59); #Neutrophils 7.1 thou/uL (1.40-6.50); %Basophils 0.2 % (0.0-1.0); %Eosinophils 0.1 % (0.0-10.0); %Lymphocytes 18.7 % (21.0-51.0); %Monocytes 8.8 % (0.0-10.0); %Neutrophils 72.2 % (42.0-75.0); Hemoglobin 8.3 g/dL (12.0-16.0); Mean Corpuscular HGB CONC 31.6 g/dL (32.0-36.0); Mean Corpuscular Hemoglobin 23.6 pg (27.0-31.0); Mean Corpuscular Volume 74.7 fL (78.0-98.0); Mean Platelet Volume 9.2 fL (7.4-10.4); Platelet Count 266 thou/uL (130-400); RBC Distribution Width 19.9 % (11.5-14.5); Red Blood Cell (RBC) Count 3.49 mill/uL (4.20-5.40); White Blood Cell (WBC) Count 9.8 thou/uL (4.8-10.8)
[2021-08-10 05:13] LABS: Anion Gap 12 mmol/L (10-20); BUN (Urea Nitrogen) 10 mg/dL (9.8-20.1); Calc. Creatinine Clearance 91 mL/min (70-130); Calcium 8.6 mg/dL (7.8-10.44); Carbon Dioxide 25 mmol/L (23-31); Chloride 104 mmol/L (98-107); Glucose 154 mg/dL (80-115); Potassium 4.2 mmol/L (3.5-5.1); Sodium 137 mmol/L (136-145)
[2021-08-10] MEDS: Transdermal Patch Removal TOP SCH (06:22)
[2021-08-10] MEDS: DULoxetine 60 MG CAP PO SCH (11:14)
[2021-08-10] MEDS: Gabapentin 300 MG CAP PO SCH ×3 (11:14→20:18)
[2021-08-10] MEDS: Ferrous Sulfate 325 MG TAB PO SCH ×2 (11:14→17:45)
[2021-08-10] MEDS: Aspirin Chewable 81 MG TAB PO SCH (11:15)
[2021-08-10] MEDS: Losartan 25 MG TAB PO SCH (11:30)
[2021-08-10] MEDS: Varenicline Tartrate 0.5 MG TAB PO SCH ×2 (11:30→20:17)
[2021-08-10] MEDS ORDERED: methylPREDNISolone 4 mg Tablet PO SCH (14:15)
[2021-08-10] MEDS ORDERED: Lidocaine 5% Patch TD SCH (18:00)
[2021-08-11] MEDS: Albuterol 200 PUFF (6.7GM INHALER) INH SCH ×3 (05:16→11:18)
[2021-08-11] MEDS: Nitroglycerin 2% Ointment 1 INCH/1 GM Packet TOP SCH ×2 (05:17→07:31)
[2021-08-11] MEDS: Transdermal Patch Removal TOP SCH (05:18)
[2021-08-11 05:22] LABS: #Eosinphils 0.1 thou/uL (0.0-0.7); #Lymphocytes 2.6 thou/uL (1.20-3.40); #Monocytes 0.8 thou/uL (0.11-0.59); %Basophils 0.3 % (0.0-1.0); %Eosinophils 1.2 % (0.0-10.0); %Monocytes 7.8 % (0.0-10.0); %Neutrophils 65.7 % (42.0-75.0); Hemoglobin 8.9 g/dL (12.0-16.0); Mean Corpuscular HGB CONC 31.8 g/dL (32.0-36.0); Mean Corpuscular Hemoglobin 23.8 pg (27.0-31.0); Mean Corpuscular Volume 74.7 fL (78.0-98.0); Platelet Count 263 thou/uL (130-400); RBC Distribution Width 20.3 % (11.5-14.5); Red Blood Cell (RBC) Count 3.75 mill/uL (4.20-5.40); White Blood Cell (WBC) Count 10.6 thou/uL (4.8-10.8)
[2021-08-11 05:49] LABS: Anion Gap 10 mmol/L (10-20); BUN (Urea Nitrogen) 9 mg/dL (9.8-20.1); Calc. Creatinine Clearance 101 mL/min (70-130); Calcium 8.6 mg/dL (7.8-10.44); Carbon Dioxide 26 mmol/L (23-31); Chloride 105 mmol/L (98-107); Glucose 81 mg/dL (80-115); Magnesium 2.1 mg/dL (1.6-2.6); Phosphorus 3.4 mg/dL (2.3-4.7); Potassium 3.9 mmol/L (3.5-5.1); Sodium 137 mmol/L (136-145)
[2021-08-11] MEDS: Ferrous Sulfate 325 MG TAB PO SCH (07:26)
[2021-08-11] MEDS: DULoxetine 60 MG CAP PO SCH (07:27)
[2021-08-11] MEDS: Varenicline Tartrate 0.5 MG TAB PO SCH (07:27)
[2021-08-11] MEDS: Gabapentin 300 MG CAP PO SCH (07:27)
[2021-08-11] MEDS: Aspirin Chewable 81 MG TAB PO SCH (07:27)
[2021-08-11] MEDS: Losartan 25 MG TAB PO SCH (07:28)
[2021-08-11 07:38] VITALS: TEMP 97.8
[2021-08-11] MEDS ORDERED: methylPREDNISolone 4 mg Tablet PO SCH (09:00)
[2021-08-11] MEDS ORDERED: Losartan 25 MG TAB PO SCH ×2 (09:00→10:00)
[2021-08-11 12:21] VITALS: BP 125/67
[2021-08-12] MEDS ORDERED: Losartan 25 MG TAB PO SCH (09:00)
== END 2021-08-11 13:53 | disposition home or self-care (01) | DRG 811 ==
LOC: 2SW 04:16
PROVIDERS: ADMIT Student in an Organized Health Care Education/Training Program; ATTEND Family Medicine
PROC: 30233N1 Transfusion of Nonautologous Red Blood Cells into Peripheral Vein, Percutaneous Approach (ICD-10-PCS; principal; 2021-08-09)
PROC: 8E0ZXY6 Isolation (ICD-10-PCS; 2021-08-09)
DX: D50.9 Iron deficiency anemia, unspecified (principal); U07.1 COVID-19; I50.32 Chronic diastolic (congestive) heart failure; I47.1 Supraventricular tachycardia; I24.8 Other forms of acute ischemic heart disease; I48.0 Paroxysmal atrial fibrillation; M17.12 Unilateral primary osteoarthritis, left knee; K21.9 Gastro-esophageal reflux disease without esophagitis; M06.9 Rheumatoid arthritis, unspecified; J45.909 Unspecified asthma, uncomplicated; K64.4 Residual hemorrhoidal skin tags; I11.0 Hypertensive heart disease with heart failure; E66.01 Morbid (severe) obesity due to excess calories; I08.1 Rheumatic disorders of both mitral and tricuspid valves; Z90.49 Acquired absence of other specified parts of digestive tract; Z98.51 Tubal ligation status; Z68.34 Body mass index [BMI] 34.0-34.9, adult; Z79.899 Other long term (current) drug therapy; Z79.51 Long term (current) use of inhaled steroids
CPT/HCPCS: 36415; 36430; 71275; 72040; 80048; 82553; 82728; 83540; 83550; 83735; 84100; 85025; 86140; 86850; 86900; 86901; 93306; 94760; C9113; J1644; J7509; J7512; P9016; Q9967

== ENCOUNTER 2025-02-02 14:58 | Outpatient (CLI) | payer MEDICARE | END 2025-02-02 14:59 | disposition home or self-care (01) | LOC: BICMAMMO 14:58 | PROVIDERS: ATTEND Family Medicine | DX: Z12.31 Encounter for screening mammogram for malignant neoplasm of breast (principal); R35.0 Frequency of micturition | CPT/HCPCS: 76770; 77063; 77067 ==